=== PATIENT | male | born 1980 | race Caucasian/White ===

== ENCOUNTER → 2021-05-11 | Day surgery (SDC) | payer BC ==
[~2021-05-11] MED LIST: Dexamethasone 4 MG/ML SDV ONE; Glycopyrrolate 0.2 MG/ML SDV ONE; Ketorolac 30 MG/ML SDV ONE; Labetalol 100 MG/20 ML MDV ONE; Lactated Ringers 1,000 ML IV SCH; Lidocaine 2% 5 ML SDV ONE; Neostigmine Methylsulfate 10 MG/10 ML MDV ONE; Ondansetron 4 MG/2 ML SDV ONE; Propofol 200 MG/20 ML SDV ONE; Rocuronium 50 MG/5 ML Vial ONE; Succinylcholine 200 MG/10 ML MDV ONE; ceFAZolin 1 GM Vial IVPUSH ONE; fentaNYL 100 MCG/2 ML SDV ONE
--- NOTE | 2021-05-11 18:18 | OR ---
DATE OF OPERATION: 05/11/2021 PREOPERATIVE DIAGNOSIS: [id number] RIGHT INGUINAL HERNIA. POSTOPERATIVE DIAGNOSIS: [id number] RIGHT INGUINAL HERNIA (INDIRECT). SURGEON: Jimy Farrell MD PROCEDURE: LAPAROSCOPIC REPAIR OF RIGHT INDIRECT INGUINAL HERNIA. ANESTHESIA: General. ESTIMATED BLOOD LOSS: Minimum. SPECIMEN: None. INDICATIONS: This 40-year-old male has symptomatic, quite large right inguinal hernia. He currently wears his truss to keep this reduced, he has been wearing it for the last 6 months or so. He now presents for surgical repair. He had a prior left inguinal hernia done laparoscopically many years ago. DESCRIPTION OF PROCEDURE: After adequate preparation, an infraumbilical incision was made and carried down to the rectus muscle. This was then retracted laterally to expose the posterior rectus sheath. A balloon dissector was then inserted and insufflated to bluntly dissect open the preperitoneal space. The Amanda trocar was placed in the infraumbilical area and two lower 5 mm midline trocars were put in under direct vision. Examination did show an indirect inguinal hernia. The sac was reduced from the cord structures and the hernia space itself. A 3 x 5 piece of Prolene mesh was then inserted into the preperitoneal space and tacked along the inferior border of the pubic bone careful not to get the bone itself. This extended out laterally along the transversalis fascia and adequately covered the indirect hernia defect. The remaining mesh was positioned behind the rectus sheath and also with staple tacker kept in place. The hernia sac itself was then brought up and stapled to the peritoneal side of the mesh to keep the hernia in a taco fashion and not debride pre-dissecting the mesh off the inferior border. 15 mL of 1% plain xylocaine was infiltrated into the preperitoneal space. The space was then desufflated and the skin closed with 4-0 Vicryl. BPB/MODL /[id number]
== END ==
LOC: CC.SDS 10:04
PROVIDERS: ATTEND Surgery
DX: K40.90 Unilateral inguinal hernia, without obstruction or gangrene, not specified as recurrent (principal); Z88.8 Allergy status to other drugs, medicaments and biological substances; Z01.812 Encounter for preprocedural laboratory examination; Z20.822 Contact with and (suspected) exposure to COVID-19
CPT/HCPCS: 49650; 87635; J0330; J0690; J1100; J1885; J2405; J2704; J2710; J3010; J3490; J7030; J7120; 00840; U0002